=== PATIENT | male | born 1955 | race Caucasian/White ===

== ENCOUNTER 2017-12-13 08:03 | Day surgery (SDC) | payer MEDICARE, BC ==
[~2017-12-13 08:03] MED LIST: Acetaminophen 325 MG Tab PO SCH; EPINEPHrine 1 MG/ML SDV ONE; Lidocaine 1%/Sod Bicarbonate in NS 8.4% 1 ML Syringe IDERM PRN; Pregabalin 25 MG Cap PO SCH; Ropivacaine 0.5% 5 MG/ML 30 ML SDV ONE; Sodium Chloride 0.9% 10 ML Syringe FLUSH PRN; oxyCODONE ER 10 MG TAB.ER PO SCH
[2017-12-13] MEDS: Lactated Ringers 1,000 ML IV SCH ×2 (08:30→15:21)
[2017-12-13] MEDS ORDERED: Lidocaine 1% 4 ML ONE (09:00)
[2017-12-13] MEDS ORDERED: Ondansetron 4 MG/2 ML SDV ONE (09:00)
[2017-12-13] MEDS ORDERED: fentaNYL 100 MCG/2 ML SDV ONE (09:00)
[2017-12-13] MEDS ORDERED: ceFAZolin 1 GM Vial ONE ×2 (09:00→11:00)
[2017-12-13] MEDS ORDERED: Propofol 200 MG/20 ML SDV ONE ×4 (09:00→12:44)
[2017-12-13] MEDS ORDERED: Midazolam 1 MG/ML 2 ML SDV ONE (09:01)
[2017-12-13] MEDS ORDERED: Lactated Ringers 2,000 ML ONE (09:01)
[2017-12-13] MEDS ORDERED: Ketamine 500 mg/10 ML MDV ONE (09:01)
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
[2017-12-13] MEDS ORDERED: Bupivacaine 0.75% 30 ML SDV ONE (11:00)
[2017-12-13] MEDS ORDERED: Bisacodyl 5 MG Tab PO PRN (11:17)
[2017-12-13] MEDS ORDERED: Morphine 2 MG/ML Syringe IVPUSH PRN (11:17)
[2017-12-13] MEDS ORDERED: Naloxone 0.4 MG/ML SDV IVPUSH PRN (11:17)
[2017-12-13] MEDS ORDERED: Magnesium Hydroxide 400 MG/5 ML Susp 30 ML Cup PO PRN (11:17)
[2017-12-13] MEDS ORDERED: Sennosides 8.6 MG Tab PO PRN (11:17)
[2017-12-13] MEDS ORDERED: Cyclobenzaprine 10 MG Tab PO PRN (11:17)
[2017-12-13] MEDS: Iodine/Sodium Iodide 2% Tincture 30 ML Bottle ONE ×2 (12:25→13:01)
[2017-12-13] MEDS: ceFAZolin 1 GM Vial ONE ×2 (12:26→13:04)
[2017-12-13] MEDS: Morphine 8 MG, EPINEPHrine 0.3 MG, Cefuroxime 750 MG, Ketorolac 30 MG, Sodium Chloride ... ONE ×15 (12:26→20:09)
[2017-12-13] MEDS: Bupivacaine 0.25% 30 ML SDV ONE ×2 (12:27→13:09)
[2017-12-13] MEDS ORDERED: Ketorolac 30 MG/ML SDV ONE (12:29)
[2017-12-13] MEDS: Vancomycin 1 GM SDV ONE ×2 (12:31→13:12)
[2017-12-13] MEDS ORDERED: Ondansetron 4 MG/2 ML SDV IVPUSH PRN (12:49)
[2017-12-13] MEDS ORDERED: Meperidine PF 50 MG/ML Syringe IVPUSH PRN (12:49)
[2017-12-13] MEDS ORDERED: fentaNYL 100 MCG/2 ML SDV IVPUSH PRN (12:49)
[2017-12-13] MEDS ORDERED: diphenhydrAMINE 50 MG/ML SDV IVPUSH PRN (12:49)
[2017-12-13] MEDS ORDERED: HYDROmorphone 0.5 MG/0.5 ML Syringe IVPUSH PRN (12:49)
[2017-12-13] MEDS ORDERED: ePHEDrine 50 MG/ML SDV IVPUSH PRN (12:49)
--- NOTE | 2017-12-13 14:06 | PCM.POSTAN ---
POST ANESTHESIA ASSESSMENT - MENTAL STATUS Mental Status: Alert, Oriented - VITAL SIGNS Pulse Rate: 82 SaO2: 97 Resp Rate: 12 Blood Pressure: 126/69 Temperature: 36.6 C - RESPIRATORY Respiratory Status: Respiratory Rate WNL, Airway Patent, O2 Saturation Stable - CARDIOVASCULAR CV Status: Pulse Rate WNL, Blood Pressure Stable - GASTROINTESTINAL GI Status: No Symptoms - PAIN Pain Score: 0 - POST OP HYDRATION Hydration Status: Adequate & Stable
--- NOTE | 2017-12-13 14:07 | PCM.SN ---
- Free Text/Narrative Note: Called to bedside. Cruz is complaining of pain in his breastbone. Dr. Castellon notified. EKG ordered.
[2017-12-13] MEDS ORDERED: Famotidine 20 MG/2 ML SDV IVPUSH ONE (14:30)
--- NOTE | 2017-12-13 14:37 | PCM.SN ---
- Free Text/Narrative Note: EKG done. Dr. Henning reviewed. No changes noted. Ty feels better and thinks he may be hungry. He is belching a lot. Famotadine 20 mg IV ordered.
--- NOTE | 2017-12-13 14:39 | PCM.SN ---
- Free Text/Narrative Note: Left selective femoral nerve block at the adductor canal for post-procedure pain control Time Out: 1420 Start: 142 End: 142 Chart reviewed. Consent signed. Questions answered. Appropriate monitors applied. Time out performed. 2mg of versed and 100mcg of fentanyl given for sedation. Left mid-shaft femur evaluated with ultrasound. Scanning medially femur, I was able to identify the femoral artery in the adductor canal. The saphenous nerve was lateral to the artery. The skin was prepped lateral to the ultrasound probe with chlorahexadine. A 21ga 4 insulated block needle was inserted under direct ultrasound guidance into the adductor canal. 25mL of 0.5 % ropivacaine with 1:200,000 epinephrine was injected cirmcumferentially about the nerve with intermittent negative aspiration every 5mL. Patient tolerated the procedure well. See pictures on progress note and vital signs on nurses notes. Block completed postoperatively. Nina Walter PSYCHIATRIC ASSISTANT
[2017-12-13] MEDS ORDERED: Sodium Chloride 0.9% 100 ML ONE (14:44)
--- NOTE | 2017-12-13 15:28 | CR ---
Left knee: AP and lateral views of the left knee were obtained. Comparison: Prior left knee exam of 07/17/15. Knee prosthesis is seen. Components are aligned. Underlying bony structures are intact. Soft tissue air is noted from the surgical procedure. Impression: 1. Satisfactory postoperative radiographic appearance of recently placed left knee prosthesis. Diagnostic code #2
[2017-12-13] MEDS: Acetaminophen/oxyCODONE 325-5 MG Tab PO PRN ×2 (17:35→21:39)
[2017-12-13] MEDS: ceFAZolin 2 GM in Premix Bag 1 BAG IV SCH (19:19)
[2017-12-13] MEDS: ceFAZolin 1 GM in Premix Bag 1 BAG IV SCH (19:20)
[2017-12-13] MEDS ORDERED: Venlafaxine 75 MG Cap.ER PO SCH (21:00)
[2017-12-13] MEDS ORDERED: Prazosin 1 MG Cap PO SCH (21:00)
[2017-12-13] MEDS ORDERED: ClonazePAM 0.5 MG Tab PO SCH (21:00)
[2017-12-13] MEDS: Famotidine 20 MG Tab PO SCH (21:40)
[2017-12-13] MEDS: CARBAMAZEPINE 300 MG PO SCH (21:40)
[2017-12-13] MEDS: Apixaban 5 MG Tab PO SCH (21:40)
[2017-12-14] MEDS: Ketorolac 15 MG/ML SDV IVPUSH PRN ×2 (01:37→10:53)
[2017-12-14] MEDS: ceFAZolin 2 GM in Premix Bag 1 BAG IV SCH ×2 (03:21→10:50)
[2017-12-14] MEDS: ceFAZolin 1 GM in Premix Bag 1 BAG IV SCH ×2 (03:22→10:50)
[2017-12-14] MEDS: Acetaminophen/oxyCODONE 325-5 MG Tab PO PRN ×3 (04:57→13:11)
--- NOTE | 2017-12-14 05:26 | PCM.SN ---
- Free Text/Narrative Note: Patient seen and examined at bedside. He is POD #1. He did not sleep well overnight. His pain was poorly controlled. He reports no other acute issues. However looks clinically stable. His blood pressures for the most part are not controlled. Will defer pain management to the primary team.
[2017-12-14] MEDS ORDERED: Levothyroxine 50 MCG Tab PO SCH (06:00)
--- NOTE | 2017-12-14 07:51 | PCM.SURGPN ---
- General Info Date of Service: 12/14/17 POD#: 1 Functional Status: Reports: Pain Controlled, Tolerating Diet, Ambulating, Urinating, Incentive Spirometry - Review of Systems Musculoskeletal: Reports: Other (The pt has progressed well with therapies.) - Patient Data Vitals - Most Recent: Last Vital Signs Temp 98.6 F 12/14/17 01:52 Pulse 93 12/14/17 01:22 Resp 16 12/14/17 01:22 BP 150/78 H 12/14/17 01:48 Pulse Ox 95 12/14/17 01:22 Weight - Most Recent: 330 lb I&O - Last 24 Hours: Intake & Output 12/13/17 12/14/17 12/14/17 22:59 06:59 14:59 Intake Total 900 Output Total 50 Balance 850 Lab Results Last 24 Hrs: Laboratory Results - last 24 hr 12/13/17 12/13/17 12/14/17 Range/Units 08:30 08:33 06:15 WBC 6.14 (4.23-9.07) K/mm3 RBC 3.91 L (4.63-6.08) M/mm3 Hgb 11.2 L (13.7-17.5) gm/L Hct 35.0 L (40.1-51.0) % MCV 89.5 (79.0-92.2) fl MCH 28.6 (25.7-32.2) pg MCHC 32.0 L (32.2-35.5) g/dl RDW Std Deviation 45.5 H (35.1-43.9) fL Plt Count 166 (163-337) K/mm3 MPV 9.6 (9.4-12.3) fl APTT 26 (24-31) SECONDS Sodium (136-145) mEq/L Potassium (3.5-5.1) mEq/L Chloride (98-107) mEq/L Carbon Dioxide (21-32) mEq/L Anion Gap (5-15) BUN (7-18) mg/dL Creatinine (0.7-1.3) mg/dL Est Cr Clr Drug Dosing mL/min Estimated GFR (MDRD) (>60) mL/min BUN/Creatinine Ratio (14-18) Glucose (80-115) mg/dL POC Glucose 99 (80-115) mg/dL Calcium (8.5-10.1) mg/dL Total Bilirubin (0.2-1.0) mg/dL AST (15-37) U/L ALT (16-63) U/L Alkaline Phosphatase (46-116) U/L Total Protein (6.4-8.2) g/dl Albumin (3.4-5.0) g/dl Globulin gm/dL Albumin/Globulin Ratio (1-2) /03/24 Range/Units 06:15 WBC (4.23-9.07) K/mm3 RBC (4.63-6.08) M/mm3 Hgb (13.7-17.5) gm/L Hct (40.1-51.0) % MCV (79.0-92.2) fl MCH (25.7-32.2) pg MCHC (32.2-35.5) g/dl RDW Std Deviation (35.1-43.9) fL Plt Count (163-337) K/mm3 MPV (9.4-12.3) fl APTT (24-31) SECONDS Sodium 135 L (136-145) mEq/L Potassium 4.1 (3.5-5.1) mEq/L Chloride 100 (98-107) mEq/L Carbon Dioxide 27 (21-32) mEq/L Anion Gap 12.1 (5-15) BUN 16 (7-18) mg/dL Creatinine 1.1 (0.7-1.3) mg/dL Est Cr Clr Drug Dosing 76.42 mL/min Estimated GFR (MDRD) > 60 (>60) mL/min BUN/Creatinine Ratio 14.5 (14-18) Glucose 155 H (80-115) mg/dL POC Glucose (80-115) mg/dL Calcium 8.0 L (8.5-10.1) mg/dL Total Bilirubin 0.4 (0.2-1.0) mg/dL AST 17 (15-37) U/L ALT 18 (16-63) U/L Alkaline Phosphatase 49 (46-116) U/L Total Protein 5.3 L (6.4-8.2) g/dl Albumin 2.6 L (3.4-5.0) g/dl Globulin 2.7 gm/dL Albumin/Globulin Ratio 1.0 (1-2) Med Orders - Current: Current Medications Apixaban (Eliquis) 5 mg PO BID [facility] Last Admin: 12/13/17 21:40 Dose: 5 mg Aspirin (Halfprin) 81 mg PO DAILY [facility] Bisacodyl (Dulcolax) 5 mg PO DAILY PRN PRN Reason: Constipation Cholecalciferol (Vitamin D3) 5,000 unit PO DAILY [facility] Clonazepam (Klonopin) 0.5 mg PO BEDTIME [facility] Last Admin: 12/13/17 21:38 Dose: 0.5 mg Cyclobenzaprine HCl (Flexeril) 10 mg PO TID PRN PRN Reason: Spasms Docusate Sodium (Colace) 100 mg PO BID [facility] Famotidine (Pepcid) 20 mg PO Q12H [facility] Last Admin: 12/13/17 21:40 Dose: 20 mg Cefazolin Sodium/Dextrose 2 gm (/ Premix) 50 mls @ 100 mls/hr IV Q8H [facility] Stop: 12/14/17 11:29 Last Admin: 12/14/17 03:21 Dose: 100 mls/hr Cefazolin Sodium/Dextrose 1 gm (/ Premix) 50 mls @ 100 mls/hr IV Q8H [facility] Stop: 12/14/17 11:29 Last Admin: 12/14/17 03:22 Dose: 100 mls/hr Ketorolac Tromethamine (Toradol) 15 mg IVPUSH Q6H PRN PRN Reason: Pain Last Admin: 12/14/17 01:37 Dose: 15 mg Levothyroxine Sodium (Synthroid) 50 mcg PO ACBREAKFAST [facility] Last Admin: 12/14/17 05:00 Dose: 50 mcg Lisinopril (Prinivil) 20 mg PO DAILY [facility] Magnesium Hydroxide (Milk Of Magnesia) 30 ml PO BID PRN PRN Reason: Constipation Metformin HCl (Glucophage) 500 mg PO DAILY@0800 [facility] Morphine Sulfate (Morphine) 2 mg IVPUSH Q2H PRN PRN Reason: Breakthrough Pain Naloxone HCl (Narcan) 0.1 mg IVPUSH Q5M PRN PRN Reason: Oversedation Carbamazepine Cap 300mg Er Own Med* * 0 mg PO BID [facility] Last Admin: 12/13/17 21:40 Dose: 300 mg Oxycodone/Acetaminophen (Percocet 325-5 Mg) 1 - 2 tab PO Q4H PRN PRN Reason: Pain Last Admin: 12/14/17 04:57 Dose: 2 tab Fenofibrate 48mg Tab (Own Med) 0 each PO DAILY [facility] Prazosin HCl (Minpress) 1 mg PO BEDTIME [facility] Last Admin: 12/13/17 21:40 Dose: 1 mg Senna (Senna) 8.6 mg PO BID PRN PRN Reason: Constipation Simvastatin (Zocor) 20 mg PO DAILY [facility] Venlafaxine HCl (Effexor Xr) 75 mg PO QPM [facility] Last Admin: 12/13/17 21:40 Dose: 75 mg Venlafaxine HCl (Effexor Xr) 150 mg PO QAM [facility] Discontinued Medications Acetaminophen (Tylenol) 975 mg PO ONETIME [facility] Stop: 12/13/17 16:00 Last Admin: 12/13/17 09:48 Dose: 975 mg Bupivacaine HCl (Marcaine 0.25%) Confirm Administered Dose 30 ml .ROUTE .STK- MED ONE Stop: 12/13/17 08:57 Last Admin: 12/13/17 13:09 Dose: 30 ml Bupivacaine HCl (Sensorcaine-Mpf 0.75%) Confirm Administered Dose 30 ml .ROUTE .STK-MED ONE Stop: 12/13/17 11:01 Cefazolin Sodium (Ancef) Confirm Administered Dose 2 gm .ROUTE .STK-MED ONE Stop: 12/13/17 08:57 Last Admin: 12/13/17 13:04 Dose: 2 gm Cefazolin Sodium (Ancef) Confirm Administered Dose 2 gm .ROUTE .STK-MED ONE Stop: 12/13/17 09:01 Cefazolin Sodium (Ancef) Confirm Administered Dose 1 gm .ROUTE .STK-MED ONE Stop: 12/13/17 11:01 Morphine Sulfate 8 mg/Epinephrine HCl 0.3 mg/Cefuroxime Sodium 750 mg/Ketorolac Tromethamine 30 mg/Sodium Chloride 27.9 ml 0 mg .XX ONETIME ONE Stop: 12/13/17 11:31 Last Admin: 12/13/17 20:09 Dose: Not Given Diphenhydramine HCl (Benadryl) 25 mg IVPUSH Q6H PRN PRN Reason: Pruritis Stop: 12/13/17 18:00 Ephedrine Sulfate (Ephedrine Sulfate) 5 mg IVPUSH ASDIRECTED PRN PRN Reason: Hypotension Stop: 12/13/17 18:00 Epinephrine HCl (Adrenalin) Confirm Administered Dose 1 mg .ROUTE .STK-MED ONE Stop: 12/13/17 07:54 Famotidine (Pepcid) 20 mg IVPUSH ONETIME ONE Stop: 12/13/17 14:31 Last Admin: 12/13/17 14:51 Dose: 20 mg Fentanyl (Sublimaze) Confirm Administered Dose 100 mcg .ROUTE .STK-MED ONE Stop: 12/13/17 09:01 Fentanyl (Sublimaze) 50 mcg IVPUSH Q5M PRN PRN Reason: Pain Stop: 12/13/17 12:50 Hydromorphone HCl (Dilaudid) 0.5 mg IVPUSH ASDIRECTED PRN PRN Reason: Severe Pain Stop: 12/13/17 12:50 Lactated Ringer's (Ringers, Lactated) 1,000 mls @ 125 mls/hr IV ASDIRECTED [facility] Stop: 12/13/17 23:00 Last Admin: 12/13/17 15:21 Dose: 125 mls/hr Lidocaine HCl (Xylocaine-Mpf 1%) Confirm Administered Dose 4 mls @ as directed .ROUTE .STK-MED ONE Stop: 12/13/17 09:01 Lactated Ringer's (Ringers, Lactated) Confirm Administered Dose 2,000 mls @ as directed .ROUTE .STK-MED ONE Stop: 12/13/17 09:02 Sodium Chloride (Normal Saline) Confirm Administered Dose 100 mls @ as directed .ROUTE .STK-MED ONE Stop: 12/13/17 14:45 Cefazolin Sodium/Dextrose (Ancef) Confirm Administered Dose 50 mls @ as directed .ROUTE .STK-MED ONE Stop: 12/13/17 19:15 Last Admin: 12/13/17 19:49 Dose: Not Given Iodine (Iodine 2% Mild Tincture) Confirm Administered Dose 30 ml .ROUTE .STK- MED ONE Stop: 12/13/17 08:57 Last Admin: 12/13/17 13:01 Dose: 18 ml Ketamine HCl (Ketalar) Confirm Administered Dose 500 mg .ROUTE .STK-MED ONE Stop: 12/13/17 09:02 Ketorolac Tromethamine (Toradol) Confirm Administered Dose 30 mg .ROUTE .STK- MED ONE Stop: 12/13/17 12:30 Lidocaine/Sodium Bicarbonate (Buffered Lidocaine 1% In Ns 8.4%) 0.25 ml IDERM ONETIME PRN PRN Reason: Prior to IV Start Stop: 12/13/17 18:00 Last Admin: 12/13/17 08:29 Dose: 0.25 ml Meperidine HCl (Demerol) 12.5 mg IVPUSH ONETIME PRN PRN Reason: Shivering Stop: 12/13/17 12:50 Midazolam HCl (Versed 1 Mg/Ml) Confirm Administered Dose 2 mg .ROUTE .STK-MED ONE Stop: 12/13/17 09:02 Ondansetron HCl (Zofran) Confirm Administered Dose 4 mg .ROUTE .STK-MED ONE Stop: 12/13/17 09:01 Ondansetron HCl (Zofran) 4 mg IVPUSH ONETIME PRN PRN Reason: Nausea/Vomiting Stop: 12/13/17 16:00 Oxycodone HCl (Oxycontin) 10 mg PO ONETIME [facility] Stop: 12/13/17 16:00 Last Admin: 12/13/17 09:48 Dose: 10 mg Pregabalin (Lyrica) 50 mg PO ONETIME [facility] Stop: 12/13/17 16:00 Last Admin: 12/13/17 09:47 Dose: 50 mg Propofol (Diprivan 20 Ml) Confirm Administered Dose 400 mg .ROUTE .STK-MED ONE Stop: 12/13/17 09:01 Propofol (Diprivan 20 Ml) Confirm Administered Dose 200 mg .ROUTE .STK-MED ONE Stop: 12/13/17 09:02 Propofol (Diprivan 20 Ml) Confirm Administered Dose 200 mg .ROUTE .STK-MED ONE Stop: 12/13/17 12:44 Propofol (Diprivan 20 Ml) Confirm Administered Dose 200 mg .ROUTE .STK-MED ONE Stop: 12/13/17 12:45 Ropivacaine (Naropin 0.5%) Confirm Administered Dose 30 ml .ROUTE .STK-MED ONE Stop: 12/13/17 07:54 Sodium Chloride (Saline Flush) 10 ml FLUSH ASDIRECTED PRN PRN Reason: Keep Vein Open Stop: 12/13/17 18:00 Tranexamic Acid (Cyklokapron) Confirm Administered Dose 1,000 mg .ROUTE .STK- MED ONE Stop: 12/13/17 08:57 Last Admin: 12/13/17 13:18 Dose: 1,000 mg Vancomycin HCl (Vancomycin) Confirm Administered Dose 1 gm .ROUTE .STK-MED ONE Stop: 12/13/17 08:57 Last Admin: 12/13/17 13:12 Dose: 1 gm - Exam Wound/Incisions: Dressing Dry and Intact General: Alert, Cooperative, No Acute Distress Lungs: Normal Respiratory Effort Extremities: Other (NVS intact for LLE. ) - Problem List Review Problem List Initiated/Reviewed/Updated: Yes - My Orders Last 24 Hours: Active Orders 24 hr Category Date Time Status Patient Status [ADT] Routine ADT 12/13/17 11:18 Active Ambulate [RC] PER UNIT ROUTINE Care 12/13/17 11:17 Active Cooling Warming Measures [RC] ASDIRECTED Care 12/13/17 12:49 Inactive May Shower [RC] ASDIRECTED Care 12/13/17 11:17 Active Notify Provider Consults [RC] ASDIRECTED Care 12/13/17 11:20 Active Notify Provider [RC] ASDIRECTED Care 12/13/17 12:49 Active Oxygen Therapy [RC] ASDIRECTED Care 12/13/17 12:49 Active Pulse Oximetry [RC] ASDIRECTED Care 12/13/17 12:49 Active RT Incentive Spirometry [RC] Q1HWA Care 12/13/17 11:17 Active Ready for Discharge [RC] PER UNIT ROUTINE Care 12/14/17 07:42 Active Up to Chair [RC] TIDAC Care 12/13/17 11:17 Active Vital Signs [RC] Q4HR Care 12/13/17 11:18 Active Consult to Physician [CONS] Routine Cons 12/13/17 11:17 Active OT Evaluation and Treatment [CONS] Routine Cons 12/13/17 11:17 Active PT Evaluation and Treatment [CONS] Routine Cons 12/13/17 11:17 Active [employer] Diet [DIET] Diet 12/13/17 Dinner Active Acetaminophen/oxyCODONE [Percocet 325-5 MG] Med 12/13/17 11:17 Active 1 - 2 tab PO Q4H PRN Apixaban [Eliquis] Med 12/13/17 21:00 Active 5 mg PO BID Aspirin [Halfprin] Med 12/14/17 09:00 Active 81 mg PO DAILY Bisacodyl [Dulcolax] Med 12/13/17 11:17 Active 5 mg PO DAILY PRN Cholecalciferol (Vitamin D3) [Vitamin D3] Med 12/14/17 09:00 Active 5,000 unit PO DAILY ClonazePAM [KlonoPIN] Med 12/13/17 21:00 Active 0.5 mg PO BEDTIME Cyclobenzaprine [Flexeril] Med 12/13/17 11:17 Active 10 mg PO TID PRN Docusate Sodium [Colace] Med 12/14/17 09:00 Active 100 mg PO BID Famotidine [Pepcid] Med 12/13/17 21:00 Active 20 mg PO Q12H Ketorolac [Toradol] Med 12/13/17 11:17 Active 15 mg IVPUSH Q6H PRN Levothyroxine [Synthroid] Med 12/14/17 06:00 Active 50 mcg PO ACBREAKFAST Lisinopril [Prinivil] Med 12/14/17 09:00 Active 20 mg PO DAILY Magnesium Hydroxide [Milk of Magnesia] Med 12/13/17 11:17 Active 30 ml PO BID PRN Morphine Med 12/13/17 11:17 Active 2 mg IVPUSH Q2H PRN Naloxone [Narcan] Med 12/13/17 11:17 Active 0.1 mg IVPUSH Q5M PRN Patient's Own Medication [Ptom] Med 12/14/17 09:00 Active 0 each PO DAILY Prazosin [Minpress] Med 12/13/17 21:00 Active 1 mg PO BEDTIME Sennosides [Senna] Med 12/13/17 11:17 Active 8.6 mg PO BID PRN Simvastatin [Zocor] Med 12/14/17 09:00 Active 20 mg PO DAILY Venlafaxine [Effexor XR] Med 12/14/17 08:00 Active 150 mg PO QAM Venlafaxine [Effexor XR] Med 12/13/17 21:00 Active 75 mg PO QPM carBAMazepine [Carbamazepine ER] Med 12/13/17 21:00 Active 0 mg PO BID ceFAZolin [Ancef] 1 gm Med 12/13/17 19:00 Active Premix Bag 1 bag IV Q8H ceFAZolin [Ancef] 2 gm Med 12/13/17 19:00 Active Premix Bag 1 bag IV Q8H metFORMIN [Glucophage] Med 12/14/17 08:00 Active 500 mg PO DAILY@0800 Antiembolic Hose [OM.PC] Per Unit Routine Oth 12/13/17 11:19 Ordered Ice Therapy [OM.PC] Per Unit Routine Oth 12/13/17 11:18 Ordered Sequential Compression Device [OM.PC] Per Unit Routine Oth 12/13/17 11:17 Ordered Resuscitation Status Routine Resus Stat 12/13/17 11:17 Ordered Medication Orders Apixaban (Eliquis) 5 mg PO BID [facility] Last Admin: 12/13/17 21:40 Dose: 5 mg Aspirin (Halfprin) 81 mg PO DAILY [facility] Bisacodyl (Dulcolax) 5 mg PO DAILY PRN PRN Reason: Constipation Cholecalciferol (Vitamin D3) 5,000 unit PO DAILY [facility] Clonazepam (Klonopin) 0.5 mg PO BEDTIME [facility] Last Admin: 12/13/17 21:38 Dose: 0.5 mg Cyclobenzaprine HCl (Flexeril) 10 mg PO TID PRN PRN Reason: Spasms Docusate Sodium (Colace) 100 mg PO BID [facility] Famotidine (Pepcid) 20 mg PO Q12H [facility] Last Admin: 12/13/17 21:40 Dose: 20 mg Cefazolin Sodium/Dextrose 2 gm (/ Premix) 50 mls @ 100 mls/hr IV Q8H [facility] Stop: 12/14/17 11:29 Last Admin: 12/14/17 03:21 Dose: 100 mls/hr Infusion: 12/13/17 19:49 Dose: 100 mls/hr Admin: 12/13/17 19:19 Dose: 100 mls/hr Cefazolin Sodium/Dextrose 1 gm (/ Premix) 50 mls @ 100 mls/hr IV Q8H [facility] Stop: 12/14/17 11:29 Last Admin: 12/14/17 03:22 Dose: 100 mls/hr Infusion: 12/13/17 19:50 Dose: 100 mls/hr Admin: 12/13/17 19:20 Dose: 100 mls/hr Ketorolac Tromethamine (Toradol) 15 mg IVPUSH Q6H PRN PRN Reason: Pain Last Admin: 12/14/17 01:37 Dose: 15 mg Levothyroxine Sodium (Synthroid) 50 mcg PO ACBREAKFAST [facility] Last Admin: 12/14/17 05:00 Dose: 50 mcg Lisinopril (Prinivil) 20 mg PO DAILY [facility] Magnesium Hydroxide (Milk Of Magnesia) 30 ml PO BID PRN PRN Reason: Constipation Metformin HCl (Glucophage) 500 mg PO DAILY@0800 [facility] Morphine Sulfate (Morphine) 2 mg IVPUSH Q2H PRN PRN Reason: Breakthrough Pain Naloxone HCl (Narcan) 0.1 mg IVPUSH Q5M PRN PRN Reason: Oversedation Carbamazepine Cap 300mg Er Own Med* * 0 mg PO BID [facility] Last Admin: 12/13/17 21:40 Dose: 300 mg Oxycodone/Acetaminophen (Percocet 325-5 Mg) 1 - 2 tab PO Q4H PRN PRN Reason: Pain Last Admin: 12/14/17 04:57 Dose: 2 tab Admin: 12/13/17 21:39 Dose: 2 tab Admin: 12/13/17 17:35 Dose: 2 tab Fenofibrate 48mg Tab (Own Med) 0 each PO DAILY [facility] Prazosin HCl (Minpress) 1 mg PO BEDTIME [facility] Last Admin: 12/13/17 21:40 Dose: 1 mg Senna (Senna) 8.6 mg PO BID PRN PRN Reason: Constipation Simvastatin (Zocor) 20 mg PO DAILY [facility] Venlafaxine HCl (Effexor Xr) 75 mg PO QPM [facility] Last Admin: 12/13/17 21:40 Dose: 75 mg Venlafaxine HCl (Effexor Xr) 150 mg PO QAM [facility] - Assessment Assessment (Free Text/Narrative):: POD#1 - left TKA - Plan Plan (Free Text/Narrative):: 1. Eliquis restarted last evening. 2. Hgb 11.2. 3. Discharge to home today. 4. Medical management per Hospitalist service. The pt's case was discussed with Dr. Castellon.
[2017-12-14] MEDS ORDERED: metFORMIN 500 MG Tab PO SCH (08:00)
[2017-12-14] MEDS ORDERED: Venlafaxine 75 MG Cap.ER PO SCH (08:00)
[2017-12-14] MEDS: Apixaban 5 MG Tab PO SCH (08:28)
[2017-12-14] MEDS: Famotidine 20 MG Tab PO SCH (08:29)
[2017-12-14] MEDS: CARBAMAZEPINE 300 MG PO SCH (08:30)
[2017-12-14] MEDS ORDERED: FENOFIBRATE 48 MG PO SCH (09:00)
[2017-12-14] MEDS ORDERED: Cholecalciferol (Vitamin D3) 5,000 UNIT Tab PO SCH (09:00)
[2017-12-14] MEDS ORDERED: FENOFIBRATE PO SCH (09:00)
[2017-12-14] MEDS ORDERED: Aspirin 81 MG Tab.EC PO SCH (09:00)
[2017-12-14] MEDS ORDERED: Lisinopril 20 MG Tab PO SCH (09:00)
[2017-12-14] MEDS ORDERED: Simvastatin 20 MG Tab PO SCH (09:00)
[2017-12-14] MEDS ORDERED: Docusate Sodium 100 MG Cap PO SCH (09:00)
--- NOTE | 2017-12-14 10:18 | PCM48HPAN ---
Post Anesthesia Note - EVALUATION WITHIN 48HRS OF ANESTHETIC Vital Signs in Normal Range: Yes Patient Participated in Evaluation: Yes Respiratory Function Stable: Yes Airway Patent: Yes Cardiovascular Function Stable: Yes Hydration Status Stable: Yes Pain Control Satisfactory: Yes Nausea and Vomiting Control Satisfactory: Yes Mental Status Recovered: Yes - COMMENTS/OBSERVATIONS Free Text/Narrative:: Patient denied any anesthetic complications. Patient complained of pain all night to the point where he was unable to sleep. He stated all the pain medication that he was given was ineffective for him. He stated his pain at the time of assessment was tolerable as long as he keeps his leg still.
[2017-12-14 11:52] VITALS: BP 148/87
--- NOTE | 2017-12-20 07:05 | PCM.OPNOTE ---
- General Post-Op/Procedure Note Date of Surgery/Procedure: 12/13/17 Operative Procedure(s): left total knee arthroplasty Pre Op Diagnosis: left knee osteoarthrosis Post-Op Diagnosis: Same Anesthesia Technique: Local, MAC, Spinal Primary Surgeon: Collin Castellon Anesthesia Provider: Cony Walter Manager Housekeeping: Luna Pinzon Manager Housekeeping: Ronda Carroll EBJaqui in mLs: 600 Complications: None Condition: Good Free Text/Narrative:: size 7/ 9mm [id number]
--- NOTE | 2017-12-20 11:32 | OR ---
DATE OF OPERATION: 12/13/2017 SURGEON: Collin Castellon MD OPERATION PERFORMED: Left total knee arthroplasty. PREOPERATIVE DIAGNOSIS: Left knee osteoarthrosis. POSTOPERATIVE DIAGNOSIS: Left knee osteoarthrosis. ANESTHESIA: Local MAC with spinal. ANESTHESIA PROVIDER: Jemma Oliveira TEST LEAD APPLICATION TESTING: Luna Pinzon PA-C, and Ronda Carroll LPN. ESTIMATED BLOOD LOSS: 600 mL COMPLICATIONS: None. CONDITION: Stable. IMPLANTS: 1. [place] size 7 press-fit CR femur. 2. [place] size 7 press-fit tibial base plate. 3. [place] size 9 mm CS polyethylene insert. 4. [place] size 35 x 10 mm press-fit patella. DESCRIPTION OF PROCEDURE: The patient was identified in the preop holding area. Proper site was marked and identified by the surgeon. The patient was taken back to the operating theater. After adequate anesthesia, the patient's left lower extremity had a nonsterile tourniquet applied and it was then sterilely prepped and draped in the usual sterile fashion. OR timeout was performed. The patient received 2 g IV Ancef. At this time, left lower extremity was exsanguinated. Tourniquet was insufflated to 300 mmHg. Standard medial parapatellar incision was made. Medial parapatellar arthrotomy was created. Deep fibers of the MCL were raised and anterior fat pad was resected. At this time, attention was turned to the patella. Patella measured 24, and it was resected to 14 for 35 x 10 mm patella. Drill holes were then drilled and found to be in adequate position. The drill was then drilled in the distal femur and the intramedullary distal femoral cutting guide was then placed. 8 mm was resected off the distal femur and was found to be an adequate resection. Sizing guide was placed. It was found to be a size 7 femur that was shown on the implant record at the beginning of this dictation. The drill holes were drilled for the epicondylar axis using Whitesides line and epicondyles as reference. At this time, the 4-in-1 cutting block was placed. An anterior posterior and anterior and posterior chamfer cuts were then completed. The correct size box cut was then placed and the box cut was completed and found to be an adequate resection. Attention was turned to the tibia. The posterior medial lateral retractors were placed. The extramedullary tibial guide was placed. It was placed in the old footprint of the ACL. It was aligned with the center of the ankle and 0 degrees of slope, 9 mm was then resected off the unaffected lateral side. There was found to be an acceptable reduction. At this time, posterior osteophytes were removed along with medial and lateral meniscus. A trial implant was placed with a correct sized tibia that was mentioned at the beginning of the dictation. A 9 mm CS polyethylene was then placed. The patient's knee was brought through range of motion. The patella was tracking centrally and was stable to varus and valgus stress. Alignment was found to be roughly at 0 degrees. The tibia was stamped and drilled in proper rotation. The universal tibial base plate was press-fit in place. Next, the 7 femur was press-fit into place and the 9 mm CS polyethylene was placed. The patient's knee was brought into full extension. The patella was then press-fitd in place at this time. Tourniquet was deflated. One liter dilute Betadine solution was irrigated through the knee along with 3 L of pulse lavage irrigation with Ancef. Periarticular injection was then completed. The patient's knee was brought through a range of motion. Knee was found to be stable to varus valgus stress, the patella was tracking centrally with full range of motion. At this time, a #2 barbed suture was used for closure of the medial parapatellar arthrotomy. Topical tranexamic acid was placed. 2-0 Vicryl was used subcutaneously, a running 3-0 Monocryl was used subcuticularly. The patient tolerated the procedure well and was sent to the PACU in stable condition. MMODAL /[id number] ISIAH
== END 2017-12-14 15:15 | disposition home or self-care (01) ==
LOC: JD.SDS 08:03 → JD.MS 08:05 → JD.SDS 12-14 15:15
PROVIDERS: ATTEND Orthopaedic Surgery
DX: M17.0 Bilateral primary osteoarthritis of knee (principal); I10 Essential (primary) hypertension; E11.9 Type 2 diabetes mellitus without complications; E66.9 Obesity, unspecified; Z68.42 Body mass index [BMI] 45.0-49.9, adult; G47.33 Obstructive sleep apnea (adult) (pediatric); Z99.89 Dependence on other enabling machines and devices; F41.9 Anxiety disorder, unspecified; E78.00 Pure hypercholesterolemia, unspecified; Z86.718 Personal history of other venous thrombosis and embolism; Z86.711 Personal history of pulmonary embolism; Z87.891 Personal history of nicotine dependence; Z79.01 Long term (current) use of anticoagulants; Z79.82 Long term (current) use of aspirin; Z79.84 Long term (current) use of oral hypoglycemic drugs; Z79.899 Other long term (current) drug therapy; Z88.5 Allergy status to narcotic agent
CPT/HCPCS: 36415; 51798; 73560-26-LT; 73560-LT; 80053; 82962; 85027; 85730; 93005; 97110-GP; 97116-GP; 97161-GP; 97166-GO; 97535-GO; A9270-GY; C1776; J0171; J0690; J0697; J1885; J2001; J2250; J2270; J2405; J2704; J2795; J3010; J3370; J3490; J7030; J7120

== ENCOUNTER 2018-07-07 07:03 | Day surgery (SDC) | payer MEDICARE, BC ==
[~2018-07-07 07:03] MED LIST changes: -Acetaminophen 325 MG Tab PO SCH; -EPINEPHrine 1 MG/ML SDV ONE; +Lactated Ringers 1,000 ML IV SCH; -Pregabalin 25 MG Cap PO SCH; -Ropivacaine 0.5% 5 MG/ML 30 ML SDV ONE; -oxyCODONE ER 10 MG TAB.ER PO SCH
[2018-07-07] MEDS ORDERED: Sodium Bicarbonate 8.4% 50 MEQ/50 ML SDV ONE (07:04)
[2018-07-07] MEDS ORDERED: Lidocaine 1% 6 ML ONE (07:04)
[2018-07-07] MEDS ORDERED: fentaNYL 100 MCG/2 ML SDV ONE (07:04)
[2018-07-07] MEDS ORDERED: Propofol 200 MG/20 ML SDV ONE ×2 (07:04→07:37)
[2018-07-07] MEDS ORDERED: ceFAZolin 1 GM Vial ONE (07:04)
[2018-07-07] MEDS ORDERED: Lidocaine 0.5% 50 ML SDV ONE (07:04)
[2018-07-07] MEDS ORDERED: Ondansetron 4 MG/2 ML SDV ONE (07:04)
[2018-07-07] MEDS ORDERED: Midazolam 1 MG/ML 2 ML SDV ONE ×2 (07:05→07:37)
[2018-07-07] MEDS ORDERED: Bupivacaine 0.25% 30 ML SDV ONE (07:55)
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
--- NOTE | 2018-07-07 09:39 | PCM48HPAN ---
Post Anesthesia Note - EVALUATION WITHIN 48HRS OF ANESTHETIC Vital Signs in Normal Range: Yes Patient Participated in Evaluation: Yes Respiratory Function Stable: Yes Airway Patent: Yes Cardiovascular Function Stable: Yes Hydration Status Stable: Yes Pain Control Satisfactory: Yes Nausea and Vomiting Control Satisfactory: Yes Mental Status Recovered: Yes Pulse Rate: 72 SaO2: 95 Resp Rate: 16 Temperature: 36.6 C Blood Pressure: 145/95
--- NOTE | 2018-07-07 09:46 | CR ---
Right wrist: Five fluoroscopic spot views utilizing C-arm device were obtained of the right wrist centered to the trapezium. Study is a procedural 1. Surgical anchors are seen between the base of the first and second metacarpals. Degenerative spurring is noted off the distal navicular bone. Previous resection of the trapezium is noted. Fluoroscopy time is given as 28.7 seconds. Impression: 1. Procedural study as described above. Diagnostic code #2
[2018-07-07 11:26] VITALS: BP 141/83
--- NOTE | 2018-07-15 16:29 | PCM.OPNOTE ---
- General Post-Op/Procedure Note Date of Surgery/Procedure: 07/07/18 Operative Procedure(s): rigth thumb carpometacarpal joint tight rope suspension arthroplasty Pre Op Diagnosis: right basilar thumb joint pain Post-Op Diagnosis: Same Anesthesia Technique: Regional Block Primary Surgeon: Collin Castellon Anesthesia Provider: Cony Walter Packing Machine Inspector: Luna Pinzon EBL in mLs: 5 Complications: None Condition: Good
--- NOTE | 2018-07-15 17:16 | OR ---
DATE OF OPERATION: 07/07/2018 SURGEON: Collin Castellon MD OPERATION PERFORMED: Right thumb carpometacarpal joint tightrope suspension arthroplasty. PREOPERATIVE DIAGNOSIS: Right basilar thumb joint pain. POSTOPERATIVE DIAGNOSIS: Right basilar thumb joint pain. ANESTHESIA: Regional Travis block. ANESTHESIA PROVIDER: Jemma Oliveira. PRESALES ENGINEER: Luna Pinzon PA-C. ESTIMATED BLOOD LOSS: Less than 5 mL. COMPLICATIONS: None. CONDITION: Stable. DESCRIPTION OF PROCEDURE: The patient was identified in the preop holding area. Proper site was marked and identified by the surgeon. The patient was taken back to the operating theater where, after adequate anesthesia, the patient's right upper extremity was sterilely prepped and draped in the usual sterile fashion. OR time-out was performed. The patient did receive antibiotics before a Travis block. At this time, under C-arm fluoroscopy, I was able to direct marketing specialist the excursion of the basilar thumb joint, and it was not at excursion at this point so that there would not have to be significant dissection of the soft tissue surrounding that area. At this time, incision was made over the basilar thumb joint utilizing the previous incision from his previous LRTI procedure. At this time, I went down to the base of the first metacarpal and was able to clear space for the titanium button. Under direct C-arm fluoroscopy, the tightrope was then placed from the base of the first metacarpal into the second metacarpal proximal third, and skin incision was made over the second metacarpal. The guidepin was then identified, and the tightrope was brought up through the second metacarpal. The EndoButton was sitting well on the base of the first metacarpal. At this time, it was held in the proper position, and the EndoButton was then placed onto the second metacarpal and tied, making sure that there was good excursion and not over- tightening it, and you could get his palm flat on the floor, but that it was not hitting on the head of the scaphoid anymore. It was found to be in good position with good bounce back effect. At this time, adequate saline was irrigated through the 2 incisions. 3-0 Vicryl was used subcutaneously, and nylon was used for the skin. The patient was placed in a radial thumb spica splint and sent to PACU in stable condition. MMODAL /[id number]
== END 2018-07-07 11:35 | disposition home or self-care (01) ==
LOC: JD.SDS 07:03
PROVIDERS: ATTEND Orthopaedic Surgery
DX: M18.11 Unilateral primary osteoarthritis of first carpometacarpal joint, right hand (principal); M17.0 Bilateral primary osteoarthritis of knee; M10.9 Gout, unspecified; I10 Essential (primary) hypertension; E03.8 Other specified hypothyroidism; E11.9 Type 2 diabetes mellitus without complications; E78.1 Pure hyperglyceridemia; G47.33 Obstructive sleep apnea (adult) (pediatric); G25.81 Restless legs syndrome; F41.9 Anxiety disorder, unspecified; Z79.01 Long term (current) use of anticoagulants; Z79.82 Long term (current) use of aspirin; Z79.84 Long term (current) use of oral hypoglycemic drugs; Z79.890 Hormone replacement therapy; Z79.899 Other long term (current) drug therapy; Z88.5 Allergy status to narcotic agent; Z87.891 Personal history of nicotine dependence
CPT/HCPCS: 25447; 76000; 82962; 87641; C1776; J0690; J2001; J2250; J2405; J2704; J3010; J3490; J7120; 01830